=== PATIENT | female | born 1975 | race Caucasian/White ===

== ENCOUNTER 2022-04-22 12:14 | Inpatient (IN) | payer MEDICAID ==
[~2022-04-22] VITALS: Ht 162.6 cm; Wt 77.3 kg
[2022-04-22] MEDS ORDERED: normal saline 1000ML IV soln IVB ONE ×2 (12:35→14:15)
--- NOTE | 2022-04-22 12:36 | NUR ---
CONSULTED KATHRYN LEAL IF HE WANTED A LEVEL 2 STROKE WORK UP. HE SAID HE WOULD PUT ORDERS IN.
[2022-04-22 13:08] LABS: BASOPHILS % (AUTO) 0.2 % (0-1); EOSINOPHILS # (AUTO) 0.1 X10'3 (0-0.9); EOSINOPHILS % (AUTO) 0.3 % (0-6); HEMATOCRIT 45.7 % (35.0-45.0); HEMOGLOBIN 15.2 g/dl (12.0-16.0); LYMPHOCYTES # (AUTO) 2.1 X10'3 (1.1-4.8); MEAN CORPUSCULAR HEMOGLOBIN 29.8 PG (27.0-31.0); MEAN CORPUSCULAR HGB CONC 33.2 g/dL (33.0-36.5); MEAN CORPUSCULAR VOLUME 89.6 FL (78-98); MEAN PLATELET VOLUME 8.1 FL (7.4-10.4); MONOCYTES # (AUTO) 1.2 X10'3 (0-0.9); MONOCYTES % (AUTO) 6.9 % (2-12); NEUTROPHILS # (AUTO) 14.5 X10'3 (1.8-7.7); NEUTROPHILS % (AUTO) 80.6 % (42-75); PLATELET COUNT 334 X10'3 (140-440); RED CELL DISTRIBUTION WIDTH 13.4 % (11.5-14.5); WHITE BLOOD COUNT 17.9 X10'3 (4.5-11.0)
[2022-04-22 13:20] LABS: ALANINE AMINOTRANSFERASE 158 U/L (12-78); ALBUMIN 3.7 G/DL (3.4-5.0); ALBUMIN/GLOBULIN RATIO 1.2 (1.1-1.5); ALKALINE PHOSPHATASE 100 IU/L (46-116); ANION GAP 11 (8-16); ASPARTATE AMINO TRANSFERASE 75 U/L (10-37); BILIRUBIN,TOTAL 0.5 MG/DL (0.1-1.0); BLOOD UREA NITROGEN 14 MG/DL (7-18); BUN/CREATININE RATIO 14.3 (6.6-38.0); CALCIUM 8.3 MG/DL (8.5-10.1); CHLORIDE 107 MMOL/L (99-107); CREATININE 0.98 MG/DL (0.40-0.90); ETHANOL < 0.010 GM/DL (0.0-0.010); GLUCOSE 129 MG/DL (70-104); SODIUM 144 MMOL/L (135-145); TOTAL CARBON DIOXIDE 26.1 MMOL/L (24-32); TOTAL PROTEIN 6.7 G/DL (6.4-8.2); eGFR 61 ML/MIN
[2022-04-22 13:27] LABS: POTASSIUM 2.9 MMOL/L (3.5-5.1)
[2022-04-22] MEDS ORDERED: potassium Cl 20 mEq SR tablet PO ONE (13:30)
[2022-04-22] MEDS ORDERED: magnesium oxide 400mg tablet PO ONE (13:30)
[2022-04-22] MEDS ORDERED: thiamine 100mg tablet PO ONE (13:30)
--- NOTE | 2022-04-22 13:39 | NUR ---
Teleneuro in progress at this time.
[2022-04-22] MEDS ORDERED: iohexol 350MG/ML 100ml bottle IV ONE (13:58)
[2022-04-22] MEDS ORDERED: ondansetron/PF 4mg/2ml inj IV PRN (14:15)
[2022-04-22] MEDS ORDERED: magnesium hydroxide 30ml (MOM) UD suspension PO PRN (14:15)
[2022-04-22] MEDS ORDERED: mag hydrox/Alum hydrox/simeth 30ml oral suspension PO PRN (14:15)
[2022-04-22] MEDS ORDERED: HYDROcodone/acetaminophen 10/325mg tab PO PRN (14:15)
[2022-04-22] MEDS ORDERED: acetaminophen 325mg tablet PO PRN ×2 (14:15)
[2022-04-22] MEDS ORDERED: HYDROcodone/acetaminophen 5mg/325mg tablet PO PRN (14:15)
[2022-04-22] MEDS ORDERED: morphine 2 MG/ML inj. syringe IV PRN ×2 (14:15)
[2022-04-22 14:32] LABS: CLARITY,URINE SLIGHTLY CLOUDY (Clear); COLOR,URINE YELLOW (Yellow); GLUCOSE, URINE NEGATIVE (Neg); KETONES,URINE NEGATIVE (Neg); LEUKOCYTE ESTERASE ,URINE SMALL (Neg); NITRITES, URINE POSITIVE (Neg); OCCULT BLOOD,URINE TRACE-INTACT (Neg); PROTEIN,URINE NEGATIVE (Neg)
[2022-04-22 14:34] LABS: UA COLLECTION TYPE CLN CATCH MIDSTREAM
[2022-04-22 14:53] LABS: URINE AMPHETAMINE SCREEN NEGATIVE (Neg); URINE BARBITUATE SCREEN NEGATIVE (Neg); URINE BENZODIAZEPINES SCREEN POSITIVE (Neg); URINE CANNABINOID SCREEN NEGATIVE (Neg); URINE COCAINE SCREEN NEGATIVE (Neg); URINE METHADONE SCREEN NEGATIVE (Neg); URINE OPIATE SCREEN NEGATIVE (Neg); URINE PHENCYCLIDINE SCREEN NEGATIVE (Neg)
[2022-04-22 14:54] LABS: CHOL/HDL RATIO 2.8 (0.00-4.99); CHOLESTEROL 135 MG/DL (0-200); HDL CHOLESTEROL 48 MG/DL (35-60); LDL CHOLESTEROL 57 MG/DL (50-100); TRIGLYCERIDES 75 MG/DL (20-135)
[2022-04-22] MEDS ORDERED: NO HOME MEDS (14:56)
[2022-04-22 15:14] LABS: BACTERIA,URINE 4+ /HPF (Neg); SQUAMOUS EPITHELIAL CELL,UR FEW /LPF (FEW); TRANSITIONAL EPI CELLS,URINE FEW /HPF
[2022-04-22] MEDS ORDERED: CefTRIAXone/D5W-Rocephin 1gm 50 ML IV ONE (15:20)
[2022-04-22 15:24] LABS: C-REACTIVE PROTEIN 0.19 MG/DL (0.0-0.5)
[2022-04-22 15:37] LABS: ACETAMINOPHEN < 2.0 UG/ML (10-30)
--- NOTE | 2022-04-22 17:20 | NUR ---
sound technician supervisor at bedside at this time.
--- NOTE | 2022-04-22 18:28 | NUR ---
Sister at bedside states there is an extensive family history of "psychosis", patient's daughter was recently hospitalized with psychosis which resulted in her 2 year old child to be taken by CPS. Patient recently moved into town from a home that was built by the patient and her spouse and while moving patient's friend followed by her dog dying as well. Patient started to decline in self care on Wednesday, slept all day on Wednesday and wednesday the patient was "not making sense".
[2022-04-22] MEDS ORDERED: GADOTERATE MEGLUMINE 7.5 MMOL/15 ML VIAL IV ONE (18:54)
--- NOTE | 2022-04-22 19:00 | NUR ---
Assumed care of patient. Patient does not appear to be in any distress, currently eating taco yu in bed. c/o pain to IV while assessing saline flush, found to have red streak 2inches in length from enterance point of catheter. IV discontinued.
[2022-04-22] MEDS: docusate sod 100mg capsule PO SCH (20:00)
[2022-04-22] MEDS: dextrose 5%-1/2 normal saline 1,000 ML IV SCH ×2 (21:00→23:31)
[2022-04-22 21:39] VITALS: BP 151/80
[2022-04-22 23:38] VITALS: BP 151/76
[2022-04-23 03:44] VITALS: BP 142/90
[2022-04-23] MEDS ORDERED: magnesium Cl slow-release 64mg tablet PO PRN (05:40)
[2022-04-23] MEDS ORDERED: magnesium 4gm in 100ml NS 100 ML IV PRN (05:40)
[2022-04-23] MEDS ORDERED: potassium Cl 40MEQ/1/2NS 520ml 520 ML IV PRN (05:40)
[2022-04-23] MEDS ORDERED: potassium Cl 20 mEq SR tablet PO PRN (05:40)
[2022-04-23 07:00] VITALS: BP 136/89
--- NOTE | 2022-04-23 07:07 | NUR ---
Patient in room [facility] 3015. I have received report from Lanette ANNE and had the opportunity to ask questions and assume patient care. Addendum: 04/23/22 at 0707 by Mike Fulton LVN Amended: Links added.
[2022-04-23 07:09] LABS: BASOPHILS # (AUTO) 0.1 X10'3 (0-0.2); BASOPHILS % (AUTO) 0.4 % (0-1); EOSINOPHILS % (AUTO) 0.2 % (0-6); HEMATOCRIT 42.8 % (35.0-45.0); HEMOGLOBIN 14.1 g/dl (12.0-16.0); LYMPHOCYTES # (AUTO) 2.2 X10'3 (1.1-4.8); LYMPHOCYTES % (AUTO) 13.3 % (21-51); MEAN CORPUSCULAR HEMOGLOBIN 29.5 PG (27.0-31.0); MEAN CORPUSCULAR VOLUME 89.3 FL (78-98); MEAN PLATELET VOLUME 8.2 FL (7.4-10.4); MONOCYTES # (AUTO) 1.3 X10'3 (0-0.9); MONOCYTES % (AUTO) 7.6 % (2-12); NEUTROPHILS # (AUTO) 13.1 X10'3 (1.8-7.7); NEUTROPHILS % (AUTO) 78.5 % (42-75); PLATELET COUNT 290 X10'3 (140-440); RED BLOOD COUNT 4.79 X10'6 (4.20-5.60); RED CELL DISTRIBUTION WIDTH 13.6 % (11.5-14.5); WHITE BLOOD COUNT 16.7 X10'3 (4.5-11.0)
[2022-04-23 07:33] LABS: ALBUMIN 3.1 G/DL (3.4-5.0); ANION GAP 8 (8-16); BLOOD UREA NITROGEN 10 MG/DL (7-18); BUN/CREATININE RATIO 14.1 (6.6-38.0); CALCIUM 7.9 MG/DL (8.5-10.1); CHLORIDE 107 MMOL/L (99-107); CREATININE 0.71 MG/DL (0.40-0.90); GLUCOSE 114 MG/DL (70-104); MAGNESIUM 1.8 MG/DL (1.5-2.4); POTASSIUM 3.2 MMOL/L (3.5-5.1); SODIUM 139 MMOL/L (135-145); TOTAL CARBON DIOXIDE 23.9 MMOL/L (24-32); eGFR 89 ML/MIN
[2022-04-23] MEDS: docusate sod 100mg capsule PO SCH ×2 (08:00→20:00)
[2022-04-23] MEDS: aspirin 81mg, enteric-coated 1 TAB TABLET.DR PO SCH (08:51)
[2022-04-23] MEDS: levetiracetam 250mg tablet PO SCH ×2 (08:51→20:27)
[2022-04-23] MEDS: enoxaparin 40mg/0.4ml syringe SUBCUT SCH (08:53)
[2022-04-23] MEDS: K and/or MAG REPLACEMENT MC SCH ×2 (08:59→19:42)
[2022-04-23] MEDS: potassium Cl 20 mEq SR tablet PO PRN ×3 (08:59→20:27)
[2022-04-23 11:12] VITALS: BP 109/71
--- NOTE | 2022-04-23 13:17 | NUR ---
Paged Page Sent PAGER ID: [phone] MESSAGE: [id number] [place]- Pt anxious asb uncontrolled thoughts, Pt states she has taken xanax in the past. She is requesting anxiety medication. Huong Fulton LVN
[2022-04-23 15:32] VITALS: BP 148/92
--- NOTE | 2022-04-23 16:40 | NUR ---
Pt reporting anxiety. Paged. Page Sent promotional table spacer PAGER ID: [phone] MESSAGE: [id number]- [place]- Pt complains of anxiety due to plethora of external life situation. Therapeutic communication utilized. Would you consider ordering an anti-anxiety medication. Huong Fulton LVN
[2022-04-23 18:00] VITALS: BP 131/81
--- NOTE | 2022-04-23 18:45 | NUR ---
Patient in room [facility] 3015. I have received report from Lanette ANNE and had the opportunity to ask questions and assume patient care. Addendum: 04/23/22 at 1917 by Mike Fulton LVN Problems reprioritized. Patient report given, questions answered & plan of care reviewed with Lanette ANNE.
[2022-04-23] MEDS: dextrose 5%-1/2 normal saline 1,000 ML IV SCH (20:15)
--- NOTE | 2022-04-23 22:49 | NUR ---
Pt. is awake alert oriented in good spirits states will have an EEG tomorrow. Pt. takes po Meds well no deficits. Refuses Colace due to stool frequency. Ambulates to BSC with minimal assistance. pt. states ambulated in [place] with PT earlier today. Pt. is looking forward to going home soon.
[2022-04-23 23:00] VITALS: BP 151/85
[2022-04-24 03:16] VITALS: BP 151/95
[2022-04-24] MEDS: dextrose 5%-1/2 normal saline 1,000 ML IV SCH (04:48)
--- NOTE | 2022-04-24 06:55 | NUR ---
Patient in room [facility] 3015. I have received report from Lanette RN and had the opportunity to ask questions and assume patient care. Pt sleeping in bed, breathing even and unlabored on room air. No distress noted. Pt assisted to bathroom via FWW. Pt is on her menstrual period. Pads provided.
[2022-04-24 07:00] VITALS: BP 131/81
[2022-04-24] MEDS: levetiracetam 250mg tablet PO SCH ×2 (07:56→19:30)
[2022-04-24] MEDS: aspirin 81mg, enteric-coated 1 TAB TABLET.DR PO SCH (07:57)
[2022-04-24] MEDS: sulfamethoxazole/trimethoprim DS (800/160mg) tablet PO SCH ×2 (07:58→19:32)
[2022-04-24] MEDS: docusate sod 100mg capsule PO SCH ×2 (07:59→19:32)
[2022-04-24] MEDS: K and/or MAG REPLACEMENT MC SCH ×2 (08:00→20:00)
[2022-04-24 08:02] LABS: BASOPHILS # (AUTO) 0.1 X10'3 (0-0.2); BASOPHILS % (AUTO) 0.5 % (0-1); EOSINOPHILS % (AUTO) 0.2 % (0-6); HEMATOCRIT 41.4 % (35.0-45.0); LYMPHOCYTES # (AUTO) 1.8 X10'3 (1.1-4.8); LYMPHOCYTES % (AUTO) 14.2 % (21-51); MEAN CORPUSCULAR HEMOGLOBIN 30.2 PG (27.0-31.0); MEAN CORPUSCULAR HGB CONC 33.8 g/dL (33.0-36.5); MEAN CORPUSCULAR VOLUME 89.4 FL (78-98); MONOCYTES # (AUTO) 0.7 X10'3 (0-0.9); MONOCYTES % (AUTO) 5.3 % (2-12); NEUTROPHILS # (AUTO) 10.3 X10'3 (1.8-7.7); NEUTROPHILS % (AUTO) 79.8 % (42-75); PLATELET COUNT 271 X10'3 (140-440); RED BLOOD COUNT 4.63 X10'6 (4.20-5.60); RED CELL DISTRIBUTION WIDTH 13.8 % (11.5-14.5)
[2022-04-24 08:14] LABS: ALBUMIN 3.3 G/DL (3.4-5.0); ANION GAP 7 (8-16); BLOOD UREA NITROGEN 11 MG/DL (7-18); BUN/CREATININE RATIO 13.6 (6.6-38.0); CALCIUM 8.7 MG/DL (8.5-10.1); CHLORIDE 107 MMOL/L (99-107); CREATININE 0.81 MG/DL (0.40-0.90); GLUCOSE 109 MG/DL (70-104); POTASSIUM 4.1 MMOL/L (3.5-5.1); SODIUM 140 MMOL/L (135-145); TOTAL CARBON DIOXIDE 26.1 MMOL/L (24-32); eGFR 76 ML/MIN
[2022-04-24] MEDS: enoxaparin 40mg/0.4ml syringe SUBCUT SCH (08:23)
[2022-04-24] MEDS ORDERED: LORazepam 0.5 MG tablet PO PRN (08:30)
--- NOTE | 2022-04-24 10:47 | NUR ---
EEG paged. [id number]- Eliu. Dr. Cam ordered an EEG. awaiting to be completed. Can you please call U ext [phone] with update. Huong Fulton LVN
--- NOTE | 2022-04-24 10:53 | NUR ---
Paged. Page Sent PAGER ID: [phone] MESSAGE: [id number]- Eliu. lab support technician will be performing EEG in 45 minutes. Huong Fulton LVN (75 character message out of a maximum of 240)
[2022-04-24 11:00] VITALS: BP 127/88
--- NOTE | 2022-04-24 14:11 | NUR ---
I AGREE WITH MISBAH LE. I INCLUDED MY OWN DIFFERENCES.
[2022-04-24 18:00] VITALS: BP 134/87
--- NOTE | 2022-04-24 18:23 | NUR ---
Problems reprioritized. Patient report given, questions answered & plan of care reviewed with Lanette RN.
[2022-04-24 23:30] VITALS: BP 127/83
[2022-04-25 02:45] VITALS: BP 127/86
--- NOTE | 2022-04-25 03:21 | NUR ---
Pt. is awake alert oriented able to recognize familiar faces. She spoke with family members by phone today. States needs to get 2 year old daughter, would like to add another person to call for Emergencies. Pt. had and EEG no signs of seizures noted. Pt. has a peripheral IV /SL. no c/o pain. Looking forward to going home.
--- NOTE | 2022-04-25 06:39 | NUR ---
Patient in room [facility] 3015. I have received report from Lanette RN and had the opportunity to ask questions and assume patient care. Pt assisted to bedside commode. Pt urinated and had a Medium formed bowel movement. Pt transferred with stand by assist. Pt tolerated well. Pt stated she slept terrible. Search Consultant will follow up with .
[2022-04-25 07:00] VITALS: BP 103/64
[2022-04-25] MEDS: K and/or MAG REPLACEMENT MC SCH (08:00)
[2022-04-25 08:02] LABS: BASOPHILS % (AUTO) 0.3 % (0-1); EOSINOPHILS % (AUTO) 0.2 % (0-6); HEMATOCRIT 42.8 % (35.0-45.0); HEMOGLOBIN 13.8 g/dl (12.0-16.0); LYMPHOCYTES # (AUTO) 1.8 X10'3 (1.1-4.8); LYMPHOCYTES % (AUTO) 14.8 % (21-51); MEAN CORPUSCULAR HEMOGLOBIN 29.3 PG (27.0-31.0); MEAN CORPUSCULAR HGB CONC 32.3 g/dL (33.0-36.5); MEAN CORPUSCULAR VOLUME 90.7 FL (78-98); MEAN PLATELET VOLUME 8.3 FL (7.4-10.4); MONOCYTES # (AUTO) 0.7 X10'3 (0-0.9); MONOCYTES % (AUTO) 5.6 % (2-12); NEUTROPHILS # (AUTO) 9.4 X10'3 (1.8-7.7); NEUTROPHILS % (AUTO) 79.1 % (42-75); PLATELET COUNT 289 X10'3 (140-440); RED BLOOD COUNT 4.72 X10'6 (4.20-5.60); RED CELL DISTRIBUTION WIDTH 13.9 % (11.5-14.5); WHITE BLOOD COUNT 11.9 X10'3 (4.5-11.0)
[2022-04-25 08:21] LABS: ALBUMIN 3.5 G/DL (3.4-5.0); ANION GAP 10 (8-16); BLOOD UREA NITROGEN 14 MG/DL (7-18); BUN/CREATININE RATIO 16.5 (6.6-38.0); CALCIUM 8.9 MG/DL (8.5-10.1); CHLORIDE 105 MMOL/L (99-107); CREATININE 0.85 MG/DL (0.40-0.90); GLUCOSE 104 MG/DL (70-104); MAGNESIUM 2.1 MG/DL (1.5-2.4); POTASSIUM 4.3 MMOL/L (3.5-5.1); SODIUM 138 MMOL/L (135-145); TOTAL CARBON DIOXIDE 23.5 MMOL/L (24-32); eGFR 72 ML/MIN
[2022-04-25] MEDS: levetiracetam 250mg tablet PO SCH (09:29)
[2022-04-25] MEDS: docusate sod 100mg capsule PO SCH (09:29)
[2022-04-25] MEDS: aspirin 81mg, enteric-coated 1 TAB TABLET.DR PO SCH (09:29)
[2022-04-25] MEDS: sulfamethoxazole/trimethoprim DS (800/160mg) tablet PO SCH (09:30)
[2022-04-25] MEDS: enoxaparin 40mg/0.4ml syringe SUBCUT SCH (09:30)
[2022-04-25] MEDS ORDERED: LEVE500T99 PO (09:42)
[2022-04-25] MEDS ORDERED: SULF1TAB45 PO (09:42)
[2022-04-25 11:00] VITALS: BP 140/86
--- NOTE | 2022-04-25 12:31 | NUR ---
All written and verbal instructions provided to patient. All questions answered. PIV discontinued to left hand. Telebox discontinued. Pt retrieved her belongings including dress, shoes, cellphone and vascular tech. Pt friend is picking her up in their personal vehicle. Pt reinforced to take seizure medications as ordered and to avoid driving. Pt educated to follow up with PCP in 1 week. Pt verbalized understanding. Addendum: 04/25/22 at 1235 by Mike Fulton LVN Amended: Links added.
--- NOTE | 2022-04-25 12:34 | NUR ---
Seizure education provided. pt verbalized understanding. Addendum: 04/25/22 at 1235 by Mike Fulton LVN Amended: Links added.
--- NOTE | 2022-04-25 17:13 | NUR ---
I AGREE WITH MIMI KILN REPAIRER ASSESSMENT.
== END 2022-04-25 12:12 | disposition home or self-care (01) | DRG 58 ==
LOC: ER 12:16 → ED HOLD 14:23 → PCU 3S 20:40
PROVIDERS: ADMIT Internal Medicine; ATTEND Internal Medicine
PROC: B3251ZZ Computerized Tomography (CT Scan) of Bilateral Common Carotid Arteries using Low Osmolar Contrast (ICD-10-PCS; 2022-04-22)
PROC: B32G1ZZ Computerized Tomography (CT Scan) of Bilateral Vertebral Arteries using Low Osmolar Contrast (ICD-10-PCS; 2022-04-22)
PROC: B32R1ZZ Computerized Tomography (CT Scan) of Intracranial Arteries using Low Osmolar Contrast (ICD-10-PCS; 2022-04-22)
PROC: B3281ZZ Computerized Tomography (CT Scan) of Bilateral Internal Carotid Arteries using Low Osmolar Contrast (ICD-10-PCS; 2022-04-22)
PROC: 4A00X4Z Measurement of Central Nervous Electrical Activity, External Approach (ICD-10-PCS; principal; 2022-04-24)
DX: G83.84 Todd's paralysis (postepileptic) (principal); G93.41 Metabolic encephalopathy; N39.0 Urinary tract infection, site not specified; B96.20 Unspecified Escherichia coli [E. coli] as the cause of diseases classified elsewhere; F41.9 Anxiety disorder, unspecified; E87.6 Hypokalemia; F17.210 Nicotine dependence, cigarettes, uncomplicated; F17.290 Nicotine dependence, other tobacco product, uncomplicated; F32.A Depression, unspecified
CPT/HCPCS: 36415; 70450; 70496; 70498; 70544; 70553; 71045; 80048; 80053; 80061; 80305; 80320; 80329; 81001; 82140; 82948; 83735; 83880; 84145; 84443; 85025; 85651; 86140; 87077; 87088; 87186; 93005; 93306; 95816; 97161; 97530; 99285; A9575; G0378; J0696; J1650; J3490; J7030; J7042; Q9967